=== PATIENT | female | born 1990 | race Caucasian/White ===

== ENCOUNTER 2019-01-25 23:25 | Emergency (ER) | payer MEDICAID ==
[~2019-01-25] VITALS: Ht 167.6 cm; Wt 61.8 kg
[2019-01-25 23:50] VITALS: BP 114/82
== END 2019-01-26 00:05 ==
LOC: ER 23:25
DX: O26.891 Other specified pregnancy related conditions, first trimester (principal); O99.341 Other mental disorders complicating pregnancy, first trimester; R51 Headache; F41.9 Anxiety disorder, unspecified; Z3A.11 11 weeks gestation of pregnancy; Z88.6 Allergy status to analgesic agent
CPT/HCPCS: 99284

== ENCOUNTER 2019-11-14 03:22 | Emergency (ER) | payer MEDICAID ==
[~2019-11-14] VITALS: Ht 167.6 cm; Wt 75.0 kg
[2019-11-14 03:24] VITALS: BP 128/77
[2019-11-14] MEDS ORDERED: ketorolac trometh. 30mg/ml inj. IM STA (04:33)
[2019-11-14] MEDS ORDERED: HYDROcodone/acetaminophen 10/325mg tab PO ONE (04:35)
[2019-11-14] MEDS ORDERED: HYDR-4353 PO (04:35)
== END 2019-11-14 04:51 | disposition home or self-care (01) ==
LOC: ER 03:22
DX: S02.2XXA Fracture of nasal bones, initial encounter for closed fracture (principal); S00.83XA Contusion of other part of head, initial encounter; S00.81XA Abrasion of other part of head, initial encounter; M54.2 Cervicalgia; R55 Syncope and collapse; F41.9 Anxiety disorder, unspecified; Z72.89 Other problems related to lifestyle; Z88.6 Allergy status to analgesic agent; W18.39XA Other fall on same level, initial encounter; Y93.89 Activity, other specified; Y92.89 Other specified places as the place of occurrence of the external cause; Y99.8 Other external cause status
CPT/HCPCS: 70486; 93005; 96372; 99284; J1885

== ENCOUNTER 2020-10-22 21:37 | Emergency (ER) | payer MEDICAID ==
[~2020-10-22] VITALS: Ht 167.6 cm; Wt 63.0 kg
[2020-10-22 22:07] VITALS: BP 130/86
== END 2020-10-23 00:54 | disposition left against medical advice (07) ==
LOC: ER 21:39
DX: Z00.00 Encounter for general adult medical examination without abnormal findings (principal); Z53.21 Procedure and treatment not carried out due to patient leaving prior to being seen by health care provider

== ENCOUNTER → 2021-03-22 | Emergency (ER) | payer MEDICAID ==
[~2021-03-22] VITALS: Ht 170.2 cm; Wt 160.0 kg
[2021-03-22 21:35] VITALS: BP 151/49
== END | disposition home or self-care (01) ==
LOC: ER 21:03
DX: R05 Cough (principal); R09.89 Other specified symptoms and signs involving the circulatory and respiratory systems; Z53.21 Procedure and treatment not carried out due to patient leaving prior to being seen by health care provider

== ENCOUNTER 2023-03-13 18:24 | Emergency (ER) | payer MEDICAID ==
[~2023-03-13] VITALS: Ht 170.2 cm; Wt 72.7 kg
[2023-03-13 18:30] VITALS: BP 128/63; PULSE 90; TEMP 98; O2SAT 100
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
[2023-03-13] MEDS ORDERED: LORazepam 1 MG tablet PO ONE (19:40)
[2023-03-13] MEDS ORDERED: proparacaine 0.5% ophthalmic drops 15ml EACHEYE ONE ×2 (19:40→20:25)
[2023-03-13] MEDS ORDERED: HYDROcodone/acetaminophen 10/325mg tab PO ONE ×2 (19:40→22:45)
[2023-03-13 19:46] VITALS: RESP 20
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
[2023-03-13 20:18] LABS: URINE HCG NEGATIVE (NEG)
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
[2023-03-13] MEDS ORDERED: erythromycin ophthalmic ointment 1gm tube RIGHTEYE ONE (22:25)
[2023-03-13] MEDS ORDERED: ERYT1OIN6 RIGHTEYE (22:27)
== END 2023-03-13 22:52 | disposition home or self-care (01) ==
LOC: ER 18:24
DX: S02.2XXA Fracture of nasal bones, initial encounter for closed fracture (principal); S80.12XA Contusion of left lower leg, initial encounter; S80.11XA Contusion of right lower leg, initial encounter; S40.022A Contusion of left upper arm, initial encounter; S40.021A Contusion of right upper arm, initial encounter; S70.12XA Contusion of left thigh, initial encounter; S00.83XA Contusion of other part of head, initial encounter; S60.031A Contusion of right middle finger without damage to nail, initial encounter; S05.01XA Injury of conjunctiva and corneal abrasion without foreign body, right eye, initial encounter; F41.9 Anxiety disorder, unspecified; Z72.89 Other problems related to lifestyle; Z88.5 Allergy status to narcotic agent; Z79.2 Long term (current) use of antibiotics; Y04.2XXA Assault by strike against or bumped into by another person, initial encounter; Y93.89 Activity, other specified; Y92.89 Other specified places as the place of occurrence of the external cause; Y99.8 Other external cause status
CPT/HCPCS: 70450; 70486; 81025; 99284; J7030

== ENCOUNTER 2023-07-02 18:09 | Emergency (ER) | payer MEDICAID ==
[~2023-07-02] VITALS: Ht 167.6 cm; Wt 70.0 kg
[2023-07-02 18:25] VITALS: TEMP 99.2
[2023-07-02] MEDS ORDERED: CYCL-1 PO (19:48)
[2023-07-02] MEDS ORDERED: NAPR-56 PO (19:48)
[2023-07-02] MEDS ORDERED: SULF1TAB49 PO (19:48)
[2023-07-02] MEDS ORDERED: CEPH-585 PO (19:48)
[2023-07-02] MEDS ORDERED: ketorolac trometh inj. 60 MG/2 ML VIAL IM ONE (19:50)
[2023-07-02 19:59] VITALS: BP 118/81; PULSE 81; O2SAT 98
== END 2023-07-02 20:05 | disposition home or self-care (01) ==
LOC: ER 18:10
DX: S06.0XAA Concussion with loss of consciousness status unknown, initial encounter (principal); S16.1XXA Strain of muscle, fascia and tendon at neck level, initial encounter; L03.314 Cellulitis of groin; Z72.89 Other problems related to lifestyle; Z88.5 Allergy status to narcotic agent; Y04.8XXA Assault by other bodily force, initial encounter; Y93.89 Activity, other specified; Y92.89 Other specified places as the place of occurrence of the external cause; Y99.8 Other external cause status
CPT/HCPCS: 70450; 72125; 96372; 99285; J1885

== ENCOUNTER 2023-07-15 14:24 | Emergency (ER) | payer MEDICAID ==
[~2023-07-15] VITALS: Ht 170.2 cm; Wt 70.5 kg
[~2023-07-15 14:24] MED LIST: CEPH-585 PO; CYCL-1 PO; NAPR-56 PO
[2023-07-15 15:31] VITALS: BP 119/74; PULSE 112; RESP 22; TEMP 99.1; O2SAT 99
[2023-07-15 15:47] LABS: BASOPHILS % (AUTO) 0.3 % (0-1); EOSINOPHILS % (AUTO) 0.1 % (0-6); HEMATOCRIT 33.1 % (35.0-45.0); HEMOGLOBIN 10.7 g/dl (12.0-16.0); LYMPHOCYTES # (AUTO) 0.2 X10'3 (1.1-4.8); LYMPHOCYTES % (AUTO) 2.8 % (21-51); MEAN CORPUSCULAR HEMOGLOBIN 26.1 PG (27.0-31.0); MEAN CORPUSCULAR HGB CONC 32.4 g/dL (33.0-36.5); MEAN CORPUSCULAR VOLUME 80.3 FL (78-98); MEAN PLATELET VOLUME 7.4 FL (7.4-10.4); MONOCYTES # (AUTO) 0.1 X10'3 (0-0.9); MONOCYTES % (AUTO) 1.7 % (2-12); NEUTROPHILS # (AUTO) 6.6 X10'3 (1.8-7.7); NEUTROPHILS % (AUTO) 95.1 % (42-75); PLATELET COUNT 254 X10'3 (140-440); RED BLOOD COUNT 4.12 X10'6 (4.20-5.60); RED CELL DISTRIBUTION WIDTH 16.1 % (11.5-14.5); WHITE BLOOD COUNT 6.9 X10'3 (4.5-11.0)
[2023-07-15 15:57] LABS: ALANINE AMINOTRANSFERASE 12 U/L (12-78); ALBUMIN 2.9 G/DL (3.4-5.0); ALBUMIN/GLOBULIN RATIO 0.8 (1.1-1.5); ALKALINE PHOSPHATASE 114 IU/L (46-116); ANION GAP 9 (8-16); ASPARTATE AMINO TRANSFERASE 17 U/L (10-37); BILIRUBIN,TOTAL 0.4 MG/DL (0.1-1.0); BLOOD UREA NITROGEN 10 MG/DL (7-18); BUN/CREATININE RATIO 14.1 (10.0-20.0); CALCIUM 8.2 MG/DL (8.5-10.1); CHLORIDE 105 MMOL/L (99-107); CREATININE 0.71 MG/DL (0.40-0.90); GLUCOSE 108 MG/DL (70-104); POTASSIUM 3.4 MMOL/L (3.5-5.1); SODIUM 136 MMOL/L (135-145); TOTAL CARBON DIOXIDE 22.2 MMOL/L (24-32); TOTAL PROTEIN 6.4 G/DL (6.4-8.2); eCRCL 113 ML/MIN; eGFR > 90 ML/MIN
[2023-07-15] MEDS ORDERED: SUMAtriptan succ. 6 MG/0.5ml vial SQ ONE (17:50)
[2023-07-15] MEDS ORDERED: ondansetron/PF 4mg/2ml inj IV ONE (17:55)
[2023-07-15] MEDS ORDERED: normal saline 1000ML IV soln IVB ONE (17:55)
== END 2023-07-15 18:32 | disposition home or self-care (01) ==
LOC: ER 14:25
DX: R11.0 Nausea (principal); Z20.822 Contact with and (suspected) exposure to COVID-19; M79.10 Myalgia, unspecified site; R05.9 Cough, unspecified; R51.9 Headache, unspecified; F41.9 Anxiety disorder, unspecified; Z72.89 Other problems related to lifestyle; Z88.6 Allergy status to analgesic agent; Z79.899 Other long term (current) drug therapy; Z79.2 Long term (current) use of antibiotics
CPT/HCPCS: 36415; 71045; 80053; 83605; 84145; 85025; 87040; 87502; 87503; 87811; 93005; 99285; J7030